=== PATIENT | male | born 1955 | race Caucasian/White ===

== ENCOUNTER 2017-03-15 10:14 | Outpatient (CLI) ==
[2013-01-08 17:34] VITALS: TEMP 97.4; BMI 35.9
--- NOTE | 2017-03-15 11:26 | DI ---
EXAM: Two views of the chest. History: Lung nodules. Comparison: Chest radiograph 01/20/2011 Findings: Heart size is normal. No focal consolidation. No appreciable pleural fluid and no pneum othorax. Partially visualized left shoulder arthroplasty hardware. No acute osseous abnormalities. Impression: No acute cardiopulmonary process. No definite lung nodules are identified.
== END 2017-03-15 10:15 | disposition home or self-care (01) ==
LOC: RAD 10:14
PROVIDERS: ATTEND Internal Medicine
DX: Z87.09 Personal history of other diseases of the respiratory system (principal)

== ENCOUNTER 2018-02-21 15:13 | Emergency (ER) ==
[2018-02-21 15:30] VITALS: BP 155/95; TEMP 97.5; BMI 38.1
[2018-02-21] MEDS ORDERED: LIDOCAINE HCL 1% SDV SUBCUT STA (16:22)
--- NOTE | 2018-02-21 16:24 | ED.PDOC ---
General ED Provider: Dr. WEI LIM Chief Complaint: Hand Laceration Stated Complaint: Sustained laceration to palmar aspect of rt hand from grinding device. Time Seen by Physician: 15:45 Mode of Arrival: Walk-In Information Source: Patient, Family Exam Limitations: No limitations Primary Care Provider: MARTHA DARDEN Nursing and Triage Documentation Reviewed and Agree: Yes Does patient meet sepsis criteria?: No System Inflammatory Response Syndrome: Not Applicable Sepsis Protocol: For patient's 13 years and over: Temp is 96.8 and below OR 101 and greater Pulse >90 BPM Resp >20/minute Acutely Altered Mental Status Are patient's symptoms suggestive of a new infection, such as: -Pneumonia -Skin, Soft Tissue -Endocarditis -UTI -Bone, Joint Infection -Implantable Device -Acute Abdominal Infection -Wound Infection -Meningitis -Blood Stream Catheter Infection -Unknown Review of Systems - Review Of Systems Constitutional: Reports: No symptoms Eyes: Reports: No symptoms Ears, Nose, Mouth, Throat: Reports: No symptoms Respiratory: Reports: No symptoms Cardiac: Reports: No symptoms GI: Reports: No symptoms : Reports: No symptoms Musculoskeletal: Reports: No symptoms Skin: Reports: No symptoms Neurological: Reports: No symptoms Endocrine: Reports: No symptoms Hematologic/Lymphatic: Reports: No symptoms All Other Systems: Reviewed and Negative Past Medical History - Past Medical History Previously Healthy: Yes Endocrine: Reports: None Cardiovascular: Reports: None Respiratory: Reports: None Hematological: Reports: None Gastrointestinal: Reports: None Genitourinary: Reports: None Neuro/Psych: Reports: None Musculoskeletal: Reports: None Cancer: Reports: None - Surgical History General Surgical History: Reports: Unknown - Family History Family History: Reports: Unknown - Social History Smoking Status: Never smoker Hx Substance Use: No Alcohol Screening: None - Immunizations Tetanus Shot up to Date: (unsure but believes it may have been in the last 5 years) Physical Exam - Physical Exam Appearance: Well-appearing, No pain distress, Well-nourished Eyes: ROGER, EOMI, Conjunctiva clear ENT: Ears normal, Nose normal, Oropharynx normal Respiratory: Airway patent, Breath sounds clear, Breath sounds equal, Respirations nonlabored Cardiovascular: RRR, Pulses normal, No rub, No murmur GI/: Soft, Nontender, No masses, Bowel sounds normal, No Organomegaly Musculoskeletal: Normal strength, ROM intact, No edema, No calf tenderness Skin: Warm, Dry, Normal color Neurological: Sensation intact, Motor intact, Reflexes intact, Cranial nerves intact, Alert, Oriented Psychiatric: Affect appropriate, Mood appropriate Procedures - Laceration/Wound Repair Reji Laceration Wound Description: Linear Wound Length (cm): 3.5 cm Wound Width: 1mm Wound Depth: 2-3mm Wound Explored: Clean Wound Irrigated: Yes Wound Prep: Saline, Hibiclens, Betadine, Scrub Anesthesia: Lidocaine Wound Repaired With: Sutures Suture Size and Type: 4-0 prolene Number of Sutures: 6 (Horizonal mattress) Layer Closure?: No Sterile Dressing Applied?: Yes Critical Care Note - Critical Care Note Total Time (mins): 0 Course - Course Orders, Labs, Meds: Orders Category Date Time Status Lidocaine HCl/Pf [Lidocaine HCl 1% Sdv] MEDS 02/21/18 16:22 Discontinued 5 ml SUBCUT ONCE STA Medications Discontinued Medications Generic Name Dose Route Start Last Admin Trade Name Freq PRN Reason Stop Dose Admin Lidocaine HCl 5 ml 02/21/18 16:22 02/21/18 16:51 Lidocaine Hcl 1% Sdv SUBCUT 02/21/18 16:23 5 ml ONCE STA Administration Vital Signs: Temp Pulse Resp BP Pulse Ox 02/21/18 15:26 97.5 F L 76 18 155/95 H 95 Departure - Departure Time of Disposition: 17:25 Disposition: HOME SELF-CARE Discharge Problem: Hand laceration, Hypertension Instructions: Laceration (ED), Care For Your Stitches (ED), Chronic Hypertension (ED) Condition: Good Pt referred to PMD for follow-up: Yes (1wk) IPMP verified?: No (N/I) Additional Instructions: Keep dressing in place/Change as directed Take Ibuprofen or TYlenol for pain as needed. Take antibiotics as directed Follow up PCP in 7-days recheck or earlier Prescriptions: Cephalexin [Keflex] 500 mg PO Q8HR #21 capsule Allergies/Adverse Reactions: Allergies No Known Allergies Allergy (Unverified 01/08/13 17:44) Home Medications: Ambulatory Orders Bisoprolol/Hydrochlorothiazide [Bisoprolol-Hctz 5-6.25 mg Tab] 1 each PO DAILY 02/21/18 Cephalexin [Keflex] 500 mg PO Q8HR #21 capsule 02/21/18 Losartan Potassium [Cozaar] 50 mg PO DAILY 02/21/18 Pantoprazole Sodium 40 mg PO DAILY 02/21/18 Disposition Discussed With: Patient, Family Skin Complaint Exam - Laceration/Abrasion/Hand Complaint/Exam Location of Injury: Right, Hand Mechanism of Injury: Laceration Onset/Duration: today-2 hrs Symptoms Are: Still present Initial Severity: Moderate Current Severity: Moderate Aggravating: Movement Alleviating: None Related History: Reports: Right hand dominant Differential Diagnoses: Laceration
[2018-02-21] MEDS ORDERED: BOOSTRIX IM ONE (17:30)
== END 2018-02-21 18:04 | disposition home or self-care (01) ==
LOC: ED 15:13
DX: S61.411A Laceration without foreign body of right hand, initial encounter (principal); I10 Essential (primary) hypertension; W29.8XXA Contact with other powered hand tools and household machinery, initial encounter
CPT/HCPCS: 90471; 90715; 96372; 99283